=== PATIENT | female | born 1995 | race Two or more races ===

== ENCOUNTER 2023-09-11 09:14 | Inpatient (IN) | payer OTHER ==
[2023-09-11] MEDS ORDERED: Ondansetron 4 MG/2 ML SDV IVPUSH PRN (09:21)
[2023-09-11] MEDS ORDERED: Calcium Carbonate 500 MG Tab.Chew PO PRN (09:21)
[2023-09-11] MEDS ORDERED: Nalbuphine 10 MG/ML Syringe IVPUSH PRN (09:21)
[2023-09-11] MEDS ORDERED: Acetaminophen 325 MG Tab PO PRN (09:21)
[2023-09-11] MEDS ORDERED: Lidocaine 1% 50 ML MDV INJECT PRN (09:21)
[2023-09-11] MEDS ORDERED: Misoprostol 25 MCG (1/4 of 100 MCG) Tab VAG PRN (09:28)
[2023-09-11] MEDS ORDERED: Oxytocin/0.9 % Sodium Chloride 30 UNIT/500 ML BAG IV SCH (09:30)
[2023-09-11 09:56] LABS: BASOPHILS ABSOLUTE AUTO 0.1 K/mm3 (0.0-0.2); BASOPHILS PERCENT AUTO 0.8 % (0.0-1.0); EOSINOPHILS ABSOLUTE AUTO 0.1 K/mm3 (0.0-0.4); EOSINOPHILS PERCENT AUTO 0.9 % (0.0-6.0); HEMATOCRIT 37.5 % (37.0-47.0); HEMOGLOBIN 12.5 gm/dl (12.0-16.0); IMMATURE GRAN ABSOLUTE AUTO 0.26 K/mm3 (0.00-0.05); IMMATURE GRAN PERCENT AUTO 2.5 % (0.0-0.4); LYMPHOCYTES ABSOLUTE AUTO 2.4 K/mm3 (1.0-4.8); LYMPHOCYTES PERCENT AUTO 22.4 % (24.0-44.0); MEAN CORPUSCULAR HEMOGLOBIN 30.8 pg (28.0-32.0); MEAN CORPUSCULAR HGB CONC 33.3 g/dl (32.0-36.0); MEAN CORPUSCULAR VOLUME 92.4 fl (83.0-99.0); MEAN PLATELET VOLUME 8.9 fl (9.4-12.3); MONOCYTES ABSOLUTE AUTO 0.6 K/mm3 (0.0-0.8); MONOCYTES PERCENT AUTO 5.6 % (0.0-8.0); NEUTROPHILS ABSOLUTE AUTO 7.2 K/mm3 (1.8-7.7); NEUTROPHILS PERCENT AUTO 67.8 % (41.0-71.0); PLATELET COUNT,PLT 298 K/mm3 (150-400); RED BLOOD CELL COUNT 4.06 M/mm3 (4.10-5.30); WHITE BLOOD CELL COUNT,WBC 10.55 K/mm3 (3.9-11.3)
[2023-09-11 11:25] LABS: CREATININE 0.7 mg/dL (0.55-1.02); EST CRCL DRUG DOSING (CG) 84.41 mL/min; URIC ACID 4.8 mg/dL (2.6-6.0)
[2023-09-11 11:48] LABS: PROTEIN CREATININE RATIO,URINE 272.7 mg/g (0-149)
[2023-09-11] MEDS: Lactated Ringers 1,000 ML IV SCH (12:06)
[2023-09-11] MEDS: Oxytocin/0.9 % Sodium Chloride 30 UNIT/500 ML BAG IV SCH (12:42)
[2023-09-11] MEDS ORDERED: diphenhydrAMINE 50 MG/ML SDV IVPUSH PRN (14:07)
[2023-09-11] MEDS: fentaNYL 100 MCG/2 ML SDV EPIDUR PRN (14:20)
[2023-09-11] MEDS: Bupivacaine/fentaNYL/NS 100 ML Bag EPIDUR PRN (14:20)
[2023-09-11] MEDS: ePHEDrine 50 MG/ML SDV IVPUSH PRN (15:00)
[2023-09-11] MEDS: Misoprostol 25 MCG (1/4 of 100 MCG) Tab VAG ONE (18:17)
[2023-09-12] MEDS ORDERED: Sodium Chloride 0.9% 10 ML SDV ONE
[2023-09-12] MEDS ORDERED: Bupivacaine 0.25% 10 ML SDV ONE
[2023-09-12] MEDS ORDERED: Sodium Chloride 0.9% 10 ML Syringe FLUSH PRN (00:01)
[2023-09-12] MEDS ORDERED: Lactated Ringers 1,000 ML IV SCH (00:15)
[2023-09-12] MEDS: Citric Acid/Sodium Citrate Solution 30 ML Cup PO ONE (00:18)
[2023-09-12] MEDS: Metoclopramide 10 MG/2 ML SDV IVPUSH ONE (00:18)
[2023-09-12] MEDS: Azithromycin 500 MG in Sodium Chloride 0.9% 250 ML IV ONE (00:18)
[2023-09-12] MEDS ORDERED: Sodium Bicarbonate 8.4% 50 MEQ/50 ML SDV ONE (00:19)
[2023-09-12] MEDS ORDERED: ceFAZolin 2 GM Vial ONE (00:19)
[2023-09-12] MEDS ORDERED: Lidocaine 2% with EPINEPHrine 1:200,000 20 ML SDV ONE (00:19)
[2023-09-12] MEDS ORDERED: Ondansetron 4 MG/2 ML SDV ONE (00:21)
[2023-09-12] MEDS ORDERED: Ketorolac 30 MG/ML SDV ONE (00:21)
[2023-09-12] MEDS ORDERED: Dexamethasone 4 MG/ML SDV ONE (00:21)
[2023-09-12] MEDS ORDERED: Morphine PF 10 MG/10 ML SDV ONE (00:30)
[2023-09-12] MEDS ORDERED: fentaNYL 100 MCG/2 ML SDV IVPUSH PRN ×2 (01:00→01:10)
[2023-09-12] MEDS ORDERED: Meperidine 50 MG/ML Vial IVPUSH PRN ×2 (01:00→01:10)
[2023-09-12] MEDS ORDERED: diphenhydrAMINE 50 MG/ML SDV IVPUSH PRN ×3 (01:00→01:42)
[2023-09-12] MEDS ORDERED: Ondansetron 4 MG/2 ML SDV IVPUSH PRN ×2 (01:00→01:10)
[2023-09-12] MEDS ORDERED: ePHEDrine 50 MG/ML SDV IVPUSH PRN (01:42)
[2023-09-12] MEDS ORDERED: Naloxone 0.4 MG/ML SDV IVPUSH PRN (01:42)
[2023-09-12] MEDS ORDERED: Dextrose 5%-Lactated Ringers 1,000 ML IV SCH (01:45)
[2023-09-12 06:35] LABS: BASOPHILS ABSOLUTE AUTO 0.1 K/mm3 (0.0-0.2); BASOPHILS PERCENT AUTO 0.4 % (0.0-1.0); HEMATOCRIT 32.6 % (37.0-47.0); HEMOGLOBIN 11.1 gm/dl (12.0-16.0); IMMATURE GRAN ABSOLUTE AUTO 0.39 K/mm3 (0.00-0.05); IMMATURE GRAN PERCENT AUTO 1.5 % (0.0-0.4); LYMPHOCYTES ABSOLUTE AUTO 1.5 K/mm3 (1.0-4.8); LYMPHOCYTES PERCENT AUTO 5.6 % (24.0-44.0); MEAN CORPUSCULAR HEMOGLOBIN 31.3 pg (28.0-32.0); MEAN CORPUSCULAR VOLUME 91.8 fl (83.0-99.0); MEAN PLATELET VOLUME 9.1 fl (9.4-12.3); MONOCYTES ABSOLUTE AUTO 0.5 K/mm3 (0.0-0.8); MONOCYTES PERCENT AUTO 1.9 % (0.0-8.0); NEUTROPHILS ABSOLUTE AUTO 24.4 K/mm3 (1.8-7.7); NEUTROPHILS PERCENT AUTO 90.6 % (41.0-71.0); PLATELET COUNT,PLT 247 K/mm3 (150-400); RED BLOOD CELL COUNT 3.55 M/mm3 (4.10-5.30); WHITE BLOOD CELL COUNT,WBC 26.85 K/mm3 (3.9-11.3)
[2023-09-12 06:50] LABS: SLIDE REVIEW ABNORMAL SMEAR
[2023-09-12 06:58] LABS: A/G RATIO 0.5 (1-2); ALBUMIN 1.9 g/dl (3.4-5.0); ANION GAP 14.7 (5-15); BILIRUBIN TOTAL 0.3 mg/dL (0.2-1.0); BUN/CREATININE RATIO 12.2 (14-18); CALCIUM 8.3 mg/dL (8.5-10.1); CREATININE 0.9 mg/dL (0.55-1.02); EST CRCL DRUG DOSING (CG) 65.65 mL/min; POTASSIUM,K 3.7 mEq/L (3.5-5.1); PROTEIN TOTAL,TP 5.6 g/dl (6.4-8.2)
[2023-09-12] MEDS: Acetaminophen 325 MG Tab PO SCH ×2 (07:49→15:46)
[2023-09-12] MEDS: Ibuprofen 600 MG Tab PO SCH ×2 (07:50→15:47)
[2023-09-12] MEDS: Dextrose 5%-Lactated Ringers 1,000 ML IV SCH (09:59)
[2023-09-12] MEDS: Sodium Chloride 0.9% 10 ML Syringe FLUSH SCH (15:28)
[2023-09-12] MEDS: ceFAZolin 2 GM in Sodium Chloride 0.9% 50 ML IV ONE (15:47)
[2023-09-12] MEDS: oxyCODONE 5 MG Tab PO PRN (18:43)
[2023-09-12] MEDS: Sennosides 8.6 MG Tab PO SCH (20:58)
[2023-09-13 06:36] LABS: HEMATOCRIT 26.6 % (37.0-47.0); MEAN CORPUSCULAR HEMOGLOBIN 30.5 pg (28.0-32.0); MEAN CORPUSCULAR HGB CONC 32.3 g/dl (32.0-36.0); MEAN CORPUSCULAR VOLUME 94.3 fl (83.0-99.0); MEAN PLATELET VOLUME 9.3 fl (9.4-12.3); NEUTROPHILS PERCENT AUTO 74.3 % (41.0-71.0); PLATELET COUNT,PLT 219 K/mm3 (150-400); RED BLOOD CELL COUNT 2.82 M/mm3 (4.10-5.30); WHITE BLOOD CELL COUNT,WBC 19.76 K/mm3 (3.9-11.3)
[2023-09-13 06:37] LABS: BASOPHILS ABSOLUTE AUTO 0.1 K/mm3 (0.0-0.2); BASOPHILS PERCENT AUTO 0.5 % (0.0-1.0); EOSINOPHILS ABSOLUTE AUTO 0.1 K/mm3 (0.0-0.4); EOSINOPHILS PERCENT AUTO 0.7 % (0.0-6.0); IMMATURE GRAN ABSOLUTE AUTO 0.33 K/mm3 (0.00-0.05); IMMATURE GRAN PERCENT AUTO 1.7 % (0.0-0.4); LYMPHOCYTES ABSOLUTE AUTO 3.6 K/mm3 (1.0-4.8); MONOCYTES ABSOLUTE AUTO 0.9 K/mm3 (0.0-0.8); MONOCYTES PERCENT AUTO 4.8 % (0.0-8.0); NEUTROPHILS ABSOLUTE AUTO 14.7 K/mm3 (1.8-7.7)
[2023-09-13 06:42] LABS: HEMOGLOBIN 8.6 gm/dl (12.0-16.0)
[2023-09-13 06:57] LABS: A/G RATIO 0.5 (1-2); ALBUMIN 1.7 g/dl (3.4-5.0); ANION GAP 12.8 (5-15); BILIRUBIN TOTAL 0.1 mg/dL (0.2-1.0); BUN/CREATININE RATIO 15.7 (14-18); CALCIUM 8.3 mg/dL (8.5-10.1); CREATININE 0.7 mg/dL (0.55-1.02); EST CRCL DRUG DOSING (CG) 84.41 mL/min; POTASSIUM,K 3.8 mEq/L (3.5-5.1)
[2023-09-13] MEDS: Ferrous Sulfate 324 MG Tab.EC PO SCH (07:47)
== END 2023-09-15 14:30 | disposition home or self-care (01) | DRG 787 ==
LOC: JD.OBCHECK 09:14 → JD.OB 09:16 → JD.OBCHECK 09:40 → JD.OB 09:41 → OBSVTOIN 09-12 00:55 → JD.OB 09-12 00:56
PROVIDERS: ADMIT Obstetrics & Gynecology; ATTEND Obstetrics & Gynecology
PROC: 10907ZC Drainage of Amniotic Fluid, Therapeutic from Products of Conception, Via Natural or Artificial Opening (ICD-10-PCS; 2023-09-12)
PROC: 10H07YZ Insertion of Other Device into Products of Conception, Via Natural or Artificial Opening (ICD-10-PCS; 2023-09-12)
PROC: 10D00Z1 Extraction of Products of Conception, Low, Open Approach (ICD-10-PCS; principal; 2023-09-12 00:26)
DX: O48.0 Post-term pregnancy (principal); D62 Acute posthemorrhagic anemia; Z37.0 Single live birth; Z3A.40 40 weeks gestation of pregnancy; O76 Abnormality in fetal heart rate and rhythm complicating labor and delivery; O62.1 Secondary uterine inertia; O13.4 Gestational [pregnancy-induced] hypertension without significant proteinuria, complicating childbirth; O90.81 Anemia of the puerperium
CPT/HCPCS: 01967; 36415; 51701; 51702; 59025; 80053; 82565; 82570; 83615; 84156; 84450; 84460; 84520; 84550; 85025; 86592; 86850; 86900; 86901; 94761; 94762; A9270-GY; C1758; J0456; J0665; J0690; J1100; J1885; J2274; J2405; J2765; J3010; J3490; J7050; J7120; J7121